=== PATIENT | female | born 1980 | race Asian ===

== ENCOUNTER 2024-09-07 14:24 | Emergency (ER) | payer OTHER, SELFPAY ==
--- NOTE | 2024-09-07 15:05 | XR_ITS ---
Examination: Wrist, left 3 views Technique: Wrist AP, oblique, lateral 3 views Date and time of exam: September 07, 2024 at 1543 hours INDICATIONS: Patient fell today with into the wrist, wrist pain. FINDINGS: Acute intra-articular fracture distal radial metaphysis No significant displacement IMPRESSION: Acute intra-articular fracture distal radial metaphysis
--- NOTE | 2024-09-07 15:05 | XR_ITS ---
Examination: Forearm, left, 2 views. Technique: Forearm, AP, lateral 2 views Date and time of exam: September 07, 2024 1543 hours INDICATIONS: Patient fell today with injury to the forearm, forearm pain FINDINGS: Acute fracture distal radial metaphysis No significant displacement IMPRESSION: Acute fracture distal radial metaphysis
--- NOTE | 2024-09-07 15:05 | PD.EDFALL ---
ED Fall Injury RME/HPI General Chief Complaint: Fall Stated Complaint: Fall pain to left arm Time Seen by Provider: 09/07/24 14:44 Source: patient Arrival date/time: 09/07/24 14:24 44-year-old female with no known medical history presents to the emergency room with a chief complaint of pain to the left wrist and forearm after a fall that occurred at school today. Mode of arrival: ambulatory Limitations: no limitations Related Data Allergies Allergy/AdvReac Type Severity Reaction Status Date / Time hydrocodone bit AdvReac Mild VOMITTING, Verified 09/07/24 14:28 NAUSEA hydromorphone HCl AdvReac Mild DIZZY Verified 09/07/24 14:28 Review of Systems Review of Systems Systems Reviewed: All systems reviewed, normal except as documented Constitutional Constitutional: Reports system reviewed and no additional complaints, except as documented, Denies fatigue, Denies fever(s), Denies headache(s) and Denies weakness Eyes Eyes: Reports system reviewed and no additional complaints, except as documented, Denies blurry vision and Denies change in vision ENT Ears, Nose, Mouth, and Throat: Reports system reviewed and no additional complaints, except as documented, Denies otalgia, Denies headache(s), Denies nasal congestion, Denies throat swelling and Denies vertigo Cardiovascular Cardiovascular: Reports system reviewed and no additional complaints, except as documented, Denies chest pain, Denies dyspnea and Denies dyspnea on exertion Respiratory Respiratory: Reports system reviewed and no additional complaints, except as documented, Denies chest congestion, Denies cough, Denies dyspnea, Denies dyspnea on exertion and Denies wheezing Gastrointestinal Gastrointestinal: Reports system reviewed and no additional complaints, except as documented, Denies abdominal pain, Denies cramping, Denies nausea and Denies vomiting Genitourinary Genitourinary: Reports system reviewed and no additional complaints, except as documented Musculoskeletal Musculoskeletal: Reports system reviewed and no additional complaints, except as documented, Reports arthralgias, Denies back pain, Reports deformity, Reports joint swelling and Reports limited range of motion Integumentary/Breasts Skin/Breast: Reports system reviewed and no additional complaints, except as documented and Denies wounds Neurologic Neurologic: Reports system reviewed and no additional complaints, except as documented, Denies confusion, Denies headache(s), Denies lack of coordination, Denies vertigo and Denies weakness Psychiatric Psychiatric: Reports system reviewed and no additional complaints, except as documented, Denies anxiety, Denies confusion, Denies depression, Denies paranoia, Denies suicidal ideation and Denies tactile hallucinations Endocrine Endocrine: Reports system reviewed and no additional complaints, except as documented and Denies fatigue Hematologic/Lymphatic Hematologic/Lymphatic: Reports system reviewed and no additional complaints, except as documented and Denies lymphadenopathy Allergic/Immunologic Allergic/Immunologic: Reports system reviewed and no additional complaints, except as documented, Denies throat swelling, Denies urticaria and Denies wheezing Past Medical History Past Medical History OTHER HISTORY: Negative Blood Transfusions Social History SMOKING STATUS: Never smoker ED Exam General Limitations: Present no limitations General appearance: Present alert and in no apparent distress Head Head exam: Present atraumatic Eye Eye exam: Present normal appearance, PERRL and EOMI ENT ENT exam: Present normal exam, normal oropharynx and mucous membranes moist Neck Neck exam: Present normal inspection, full ROM and trachea midline Chest Chest inspection: Present normal inspection and symmetric chest wall rise Respiratory Respiratory exam: Present normal lung sounds bilaterally Cardiovascular Cardiovascular exam: Present regular rate, normal rhythm and normal heart sounds Abdominal Exam Abdominal exam: Present soft and normal bowel sounds Extremities Exam Extremities exam: Present normal inspection and full ROM Expanded Upper Extremity Exam Shoulder exam: Present normal inspection Arm exam: Present normal inspection Elbow exam: Present normal inspection Forearm/Wrist exam: Present tenderness, swelling and deformity; Absent full ROM Hand exam: Present tenderness Neuromotor exam: Normal fingers 2-5 abduction Vascular exam: Normal capillary refill Back Exam Back exam: Present normal inspection and full ROM Neurological Exam Neurological exam: Present alert, oriented X3 and CN II-XII intact Psychiatric Psychiatric exam: Present normal affect and normal mood Skin Skin exam: Present warm, dry, intact and normal color Course Quality Measures none Orders Category Date Time Status Splint / Immobilizer STAT Care 09/07/24 16:10 Completed XR forearm LT 2V Stat Exams 09/07/24 15:05 Completed XR wrist comp LT min 3V Stat Exams 09/07/24 15:05 Completed Vital Signs Vital signs: Vital Signs Temperature 98.7 F 09/07/24 15:17 Pulse Rate 96 09/07/24 15:17 Respiratory Rate 18 09/07/24 15:17 Blood Pressure 137/88 H 09/07/24 15:17 Pulse Oximetry (%) 99 09/07/24 15:17 Oxygen Delivery Method Room Air 09/07/24 15:17 Fall MDM Narrative MDM Narrative:: 44-year-old female with no known medical history presents to the emergency room with a chief complaint of pain to the left wrist and forearm after a fall that occurred at school today. Clinically the patient is hemodynamically stable and in no apparent distress Physical examination shows an obvious deformity to the left wrist. Patient is having tenderness, swelling, limited range of motion to the area. Patient has active sensation to the area. There is no numbness there is no tingling. Patient is able to move all her digits in her hand and states the pain is in the wrist forearm area. X-ray was completed and shows an acute intra-articular fracture of the distal radial metaphysis. A splint was placed pain medication was given and the patient was discharged and educated to follow-up with her primary care provider as a referral to an pharmacy clinical specialist will be indicated. Patient was educated return to the emergency room for any evidence of worsening signs or symptoms. Patient data External records reviewed:: [facility] previous records Clinical information provided by:: patient Social determinants that could affect healthcare access:: none Patient has the following chronic illnesses:: No chronic illness How is presenting disease/condition affected by chronic disease/condition?: no chronic disease Evaluation data The following diagnostics were reviewed and interpreted by me:: lab results and radiology exam(s) Lab and/or radiology exams considered but not ordered:: Labs and radiology exams considered and ordered Interpretation Summary: Left wrist [id number]: Acute intra-articular fracture distal radial metaphysis No significant displacement IMPRESSION: Acute intra-articular fracture distal radial metaphysis Medications / Prescriptions Medications or Prescriptions considered but not ordered:: Medication given Medication administrations:: Medication given Consultations Consultation(s) initiated? (list below): No Diagnosis Fall Differential Diagnosis: fracture of wrist and other (Acute distal radius fracture/sprain of the wrist) Most likely diagnosis given after review of the tests above:: Acute distal radius fracture Admission Indicated Admission indicated?: not indicated Admission Request Was there a request for admission?: No Disposition Plan Disposition Plan: Discharge Discharge Attestation Discharge Attestation: The patient and all family members were given an opportunity to ask questions and understood the discharge instructions. Discharge instructions specifically effects, indications for sooner follow up or return to the emergency department, and the expected course of current diagnosis. Patient condition: Stable Discharge Plan Plan Patient Disposition: HOME (Self Care) Disposition Comment: Stable Problem List Clinical Impression: Distal radial fracture Patient/Caregiver Discharge Instructions Education Materials: Wrist Fracture, ED Fracture, Upper Extremity Additional Instructions: Please follow-up with your primary care provider in the next 24 to 48 hours. You have a fracture of your radius. You will need to follow-up with your primary care provider for referral to an pharmacy clinical specialist For any evidence of worsening signs or symptoms return to the emergency room immediately Print Language: Romansh Stand Alone Forms: [employer] Award Info., Patient Portal Info Letter PA/BOOKMOBILE CLERK Supervising Physician PA/BOOKMOBILE CLERK Supervising Physician: Dr Morgan
[2024-09-07 15:17] VITALS: BP 137/88; PULSE 96; RESP 18; TEMP 37.1; O2SAT 99; BMI 29.2
== END 2024-09-07 17:08 | disposition home or self-care (01) ==
LOC: SERX 17:12
PROVIDERS: Emergency Provider Emergency Medicine
DX: S52.572A Other intraarticular fracture of lower end of left radius, initial encounter for closed fracture (principal); W19.XXXA Unspecified fall, initial encounter; Y92.219 Unspecified school as the place of occurrence of the external cause
CPT/HCPCS: 29125; 73090; 73110; 99283

== ENCOUNTER → 2024-10-23 | Outpatient (CLI) | payer OTHER, SELFPAY ==
[2024-10-23 09:12] LABS: Collection Type, Urine Clean Catch
[2024-10-23 10:24] LABS: Basophils % (Auto) 1 % (0-2.5); Eosinophils # (Auto) 0.2 Thou/mm3 (0.0-0.5); Eosinophils % (Auto) 3 % (0-10); Hematocrit 33.8 % (36.0-46.0); Immature Granulocytes % (Auto) 0 % (0-0); Immature Granulocytes Auto 0.01 Thou/mm3 (0.00-0.00); Lymphocytes # (Auto) 2.2 Thou/mm3 (1.0-4.8); Lymphocytes % (Auto) 32 % (10-50); Mean Corpuscular HGB Conc 32.5 g/dl (31.0-37.0); Mean Corpuscular Hemoglobin 23.6 pg (25.0-35.0); Mean Corpuscular Volume 73 fL (80-100); Monocytes # (Auto) 0.5 Thou/mm3 (0.0-0.8); Monocytes % (Auto) 8 % (0-12); Neutrophils # (Auto) 3.8 Thou/mm3 (1.8-7.7); Neutrophils % (Auto) 56 % (37-80); Nucleated Red Blood Cell % 0 /100 WBC (0); Platelet Count 427 Thou/mm3 (140-440); RDW Standard Deviation 39.7 fL (36.4-46.3); Red Blood Count 4.66 Miln/mm3 (4.00-5.20); White Blood Count 6.8 Thou/mm3 (3.6-11.0)
[2024-10-23 10:26] LABS: Bilirubin,Urine Negative (Negative); Blood,Urine Negative (Negative); Clarity,Urine Clear (Clear/Hazy); Color,Urine Colorless (Lt Yel-Yel); Glucose, Urine Negative (Negative); Ketones,Urine Negative (Negative); Leukocyte Esterase,Urine Negative (Negative); Nitrite,Urine Negative (Negative); PH,Urine 6.5 (5.0-7.0); Protein,Urine Negative (Neg - Trace); RBC,Urine 1 /hpf (0-3); Specific Gravity,Urine 1.011 (1.001-1.035); Squamous Epithelial Cell,Urine 1 /hpf (0-5); Urobilinogen,Urine Negative mg/dL (0.0-1.0); WBC,Urine < 1 /hpf (0-5)
[2024-10-23 10:40] LABS: Glucose Estimated Average 105 mg/dL (80-131); Hemoglobin A1C 5.3 % Hgb (4.8-6.0)
[2024-10-23 10:50] LABS: Alanine Aminotransferase 13 U/L (10-49); Albumin, Serum 4.3 gm/dL (3.5-5.0); Alkaline Phosphatase 76 U/L (46-116); Anion Gap 8 (7-16); Aspartate Amino Transferase 20 U/L (0-34); BUN/Creatinine Ratio 11 Ratio (12-20); Bilirubin,Total 0.5 mg/dL (0.3-1.2); Blood Urea Nitrogen 8 mg/dL (9-23); Calcium 8.6 mg/dL (8.3-10.6); Calcium (Corrected) 8.6 mg/dL (8.5-10.1); Carbon Dioxide 28.4 mMol/L (20.0-31.0); Cardiac Risk Estimate 5.3 RATIO (3.7-5.6); Chloride 101 mMol/L (98-107); Cholesterol 231 mg/dL (132-200); Creatinine (Component) 0.7 mg/dL (0.6-1.3); Free T4 (Free Thyroxine) 1.26 ng/dL (0.89-1.76); Globulin 4.4 gm/dL (2.3-3.5); Glucose 86 mg/dL (74-106); HDL Cholesterol 44 mg/dL (40-60); LDL Cholesterol,Calculated 166 mg/dL (0-130); Osmolality,Calculated 271 (275-295); Potassium 3.2 mMol/L (3.4-5.1); Sodium 137 mMol/L (136-145); Thyroid Stimulating Hormone 2.05 uIU/mL (0.55-4.78); Total Protein 8.7 gm/dL (5.7-8.2); Triglycerides 107 mg/dL (30-150); eGFR > 60 See Note
== END | disposition home or self-care (01) ==
LOC: SLAB 09:04
PROVIDERS: PCP Family Medicine; Referring Provider Family Medicine; Visit Provider Family Medicine
DX: Z01.89 Encounter for other specified special examinations (principal); K21.9 Gastro-esophageal reflux disease without esophagitis
CPT/HCPCS: 36415; 80053; 80061; 81001; 83036; 84439; 84443; 85025

== ENCOUNTER → 2024-11-07 | Outpatient (CLI) | payer OTHER, SELFPAY ==
--- NOTE | 2024-11-07 09:30 | XR_ITS ---
Examination: MRI left wrist, without contrast Date and time of exam: FebruaryNovember 07, 2024 1101 hours INDICATIONS: Injury to the wrist September 07, 2024, acute intra-articular fracture distal radial metaphysis Technique: Multiple axial sagittal and coronal images of the left breast have been obtained with the Siemens high-resolution 1.5 Jessy MRI scanner. Images obtained include T2-weighted fat-suppressed sagittal sections, TR 3500, TE 46, T2 weighted coronal fat suppressed images, TR 3050, TE 84, T2-weighted transverse fat suppressed images, TR 3260, TE 63, proton density transverse images, TR 4720 TE 46, and T1 weighted coronal images, TR 560, TE 13. Findings: Extensive marrow edema distal radius with healing comminuted fracture, intra-articular distal radial metaphysis Satisfactory alignment Coronal image 7 suspicious for tear of the triangular fibrocartilage Carpal bones intact Flexor tendons intact with normal median nerve Extensor tendons intact No ganglion cyst IMPRESSION: Partial healing fracture distal radial metaphysis intra-articular with satisfactory alignment Consider MRI wrist post MRI arthrography to confirm tear of the triangular fibrocartilage
== END | disposition home or self-care (01) ==
PROVIDERS: Referring Provider Orthopaedic Surgery; Visit Provider Orthopaedic Surgery
DX: S52.92XA Unspecified fracture of left forearm, initial encounter for closed fracture (principal); X58.XXXA Exposure to other specified factors, initial encounter
CPT/HCPCS: 73221